=== PATIENT | female | born 1975 | race Asian ===

== ENCOUNTER 2016-05-27 11:03 | Emergency (ER) | payer OTHER ==
[~2016-05-27] VITALS: Ht 170.2 cm; Wt 59.0 kg
[2016-05-27 12:01] LABS: BILIRUBIN,URINE NEG (NEG); CLARITY,URINE CLEAR; COLOR,URINE YELLOW; GLUCOSE,URINE NEG (NEG)
[2016-05-27 12:02] LABS: NITRITE,URINE NEG (NEG); UROBILINOGEN,URINE 0.2 mg/dL (0.2 mg/dL)
--- NOTE | 2016-05-27 12:04 | RAD ---
CT of the abdomen and pelvis without contrast, 05/27/2016: History: Right flank pain, kidney stones Noncontrast scans were obtained utilizing the renal stone protocol. This is a limited study for evaluation of the possibility of urinary tract calculi. There is a 4 mm calculus in the central aspect of the right kidney. No left intrarenal calculi are identified. The renal collecting systems and ureters are not dilated. The nondilated distal ureters cannot be clearly traced through the pelvis in this patient. Several small bilateral pelvic calcifications are probably phleboliths. The possibility that one of these pelvic radiopacities lies in the distal ureter cannot be entirely excluded, although not likely considering the lack of proximal obstructive changes. The unopacified liver is unremarkable. No gallbladder abnormality is seen. The pancreas cannot be clearly from unopacified bowel. The spleen is of normal size. The abdominal aorta is unremarkable. A 2 cm rounded cystic structure in the left adnexa is presumably an ovarian cyst. A small amount of free fluid is present in the deep pelvis. The bowel loops are not dilated. The cecum is low-lying in the pelvis. The appendix is not visualized. Several small colonic diverticula are noted. No free air is evident in the abdomen or pelvis. IMPRESSION: 1. Nonobstructing right intrarenal calculus. 2. Pelvic calcifications are probably phleboliths, although the distal ureters are not clearly defined in this patient and therefore a distal ureteral calculus cannot be entirely excluded. 3. Small amount of free fluid in the pelvis. 4. Small left ovarian cyst. PQRS Compliance Statement: One or more of the following individualized dose reduction techniques were utilized for this examination: 1. Automated exposure control 2. Adjustment of the mA and/or kV according to patient size 3. Use of iterative reconstruction technique
[2016-05-27] MEDS ORDERED: HYDR-971 PO (12:12)
[2016-05-27] MEDS ORDERED: KETO10TA PO (12:12)
[2016-05-27] MEDS ORDERED: ONDA4TAB10 PO (12:12)
[2016-05-27] MEDS ORDERED: KETOROLAC 60 MG/2 ML VIAL. IM ONE (12:30)
[2016-05-27 12:35] VITALS: BP 136/82
--- NOTE | 2016-05-27 13:03 | ED.ADGEN ---
Past History Past Medical History: Endometriosis, Kidney Stones Past Surgical History: No Surgical History Alcohol Use: None Drug Use: None Adult General HPI HPI Patient is a 41-year-old female presents emergency Department with right flank pain since last night. Patient states this is consistent with her previous kidney stones. Her last was approximately one year ago. She they will pass most of her previous kidney stones on her own did require stenting one time. She denies any fevers or chills. She has had some nausea associated with the pain. At the moment she rates the pain a 5 out of 10 and is declining any pain medications. Review of Systems Review of Systems Constitutional: Denies fever or chills [] Eyes: Denies change in visual acuity, redness, or eye pain [] HENT: Denies nasal congestion or sore throat [] Respiratory: Denies cough or shortness of breath [] Cardiovascular: No additional information not addressed in HPI [] GI: Denies abdominal pain, nausea, vomiting, bloody stools or diarrhea [] : Denies dysuria or hematuria [] Musculoskeletal: Denies back pain or joint pain [] Integument: Denies rash or skin lesions [] Neurologic: Denies headache, focal weakness or sensory changes [] Endocrine: Denies polyuria or polydipsia [] Current Medications Current Medications Current Medications Medications (Trade) Dose Ordered Sig/[facility] Start Time Stop Time Status Last Admin Dose Admin Ketorolac Tromethamine (Toradol) 60 mg 1X ONCE 05/27/16 12:30 05/27/16 12:31 DC 05/27/16 12:22 60 MG Allergies Allergies Allergies Coded Allergies Type Severity Reaction Last Updated Verified No Known Drug Allergies 05/27/16 No Physical Exam Physical Exam Constitutional: Well developed, well nourished, no acute distress, non-toxic appearance. [] HENT: Normocephalic, atraumatic, bilateral external ears normal, oropharynx moist, no oral exudates, nose normal. [] Eyes: PERRLA, EOMI, conjunctiva normal, no discharge. [] Neck: Normal range of motion, no tenderness, supple, no stridor. [] Cardiovascular:Heart rate regular rhythm, no murmur [] Lungs & Thorax: Bilateral breath sounds clear to auscultation [] Abdomen: Bowel sounds normal, soft, no tenderness, no masses, no pulsatile masses. [] Skin: Warm, dry, no erythema, no rash. [] Back: No tenderness, right CVA tenderness. [] Extremities: No tenderness, no cyanosis, no clubbing, ROM intact, no edema. [] Neurologic: Alert and oriented X 3, normal motor function, normal sensory function, no focal deficits noted. [] Psychologic: Affect normal, judgement normal, mood normal. [] Current Patient Data Vital Signs Vital Signs Date Time Temp Pulse Resp B/P Pulse Ox O2 Delivery O2 Flow Rate FiO2 05/27/16 12:35 66 18 136/82 99 Room Air 05/27/16 11:10 98.7 Lab Results Laboratory Tests Test 05/27/16 11:24 05/27/16 11:31 Urine Collection Type Unknown Urine Color Yellow Urine Clarity Clear Urine pH 6.5 Urine Specific [place] 1.025 Urine Protein Neg (NEG-TRACE) Urine Glucose (UA) Negmg/dL (NEG) Urine Ketones (Stick) Negmg/dL (NEG) Urine Blood Trace (NEG) Urine Nitrite Neg (NEG) Urine Bilirubin Neg (NEG) Urine Urobilinogen Dipstick 0.2mg/dL (0.2 mg/dL) Urine Leukocyte Esterase Neg (NEG) POC Urine HCG, Qualitative hcg negative (Negative) EKG EKG [] Radiology/Procedures Radiology/Procedures CT of the abdomen and pelvis without contrast, 05/27/2016: History: Right flank pain, kidney stones Noncontrast scans were obtained utilizing the renal stone protocol. This is a limited study for evaluation of the possibility of urinary tract calculi. There is a 4 mm calculus in the central aspect of the right kidney. No left intrarenal calculi are identified. The renal collecting systems and ureters are not dilated. The nondilated distal ureters cannot be clearly traced through the pelvis in this patient. Several small bilateral pelvic calcifications are probably phleboliths. The possibility that one of these pelvic radiopacities lies in the distal ureter cannot be entirely excluded, although not likely considering the lack of proximal obstructive changes. The unopacified liver is unremarkable. No gallbladder abnormality is seen. The pancreas cannot be clearly from unopacified bowel. The spleen is of normal size. The abdominal aorta is unremarkable. A 2 cm rounded cystic structure in the left adnexa is presumably an ovarian cyst. A small amount of free fluid is present in the deep pelvis. The bowel loops are not dilated. The cecum is low-lying in the pelvis. The appendix is not visualized. Several small colonic diverticula are noted. No free air is evident in the abdomen or pelvis. IMPRESSION: 1. Nonobstructing right intrarenal calculus. 2. Pelvic calcifications are probably phleboliths, although the distal ureters are not clearly defined in this patient and therefore a distal ureteral calculus cannot be entirely excluded. 3. Small amount of free fluid in the pelvis. 4. Small left ovarian cyst.[] Course & Med Decision Making Course & Med Decision Making Pertinent Labs and Imaging studies reviewed. (See chart for details) The findings of the CT scan were reviewed with the patient. She is given prescriptions for Floris Zofran, and Toradol. She did receive an IM dose here. She was given supportive care and follow-up instructions. [] Final Impression Final Impression Right flank pain [] Problems: Dragon Disclaimer Dragon Disclaimer This electronic medical record was generated, in whole or in part, using a voice recognition dictation system. DEBORAH FAIRCHILD MD May 27, 2016 13:03
== END 2016-05-27 12:42 | disposition home or self-care (01) ==
LOC: ER 11:03
DX: R10.9 Unspecified abdominal pain (principal); R11.0 Nausea; Z87.442 Personal history of urinary calculi
CPT/HCPCS: 74176; 81003; 84703; 96372; 99284; J1885; 81025

== ENCOUNTER 2016-11-08 20:52 | Emergency (ER) | payer OTHER ==
[~2016-11-08] VITALS: Ht 170.2 cm; Wt 59.0 kg
[~2016-11-08 20:52] MED LIST: HYDR-971 PO; KETO10TA PO; ONDA4TAB10 PO
[2016-11-08 21:38] LABS: BILIRUBIN,URINE NEG (NEG); CLARITY,URINE HAZY; COLOR,URINE YELLOW; GLUCOSE,URINE NEG (NEG); NITRITE,URINE NEG (NEG); UROBILINOGEN,URINE 0.2 mg/dL (0.2 mg/dL)
[2016-11-08 21:45] LABS: BACTERIA,URINE 0 /HPF (0-FEW); RBC,URINE 20-40 /HPF (0-2); SQUAMOUS EPITHELIAL CELL,UR MANY /LPF; WBC,URINE 0 /HPF (0-4)
[2016-11-08] MEDS ORDERED: ONDANSETRON PF 4 MG/2 ML VIAL. IV ONE (21:45)
[2016-11-08] MEDS ORDERED: KETOROLAC 30 MG/ML VIAL. IV ONE (21:45)
[2016-11-08 21:46] LABS: U PREG PATIENT NEGATIVE (NEG)
[2016-11-08] MEDS: fentaNYL PF 100 MCG/2 ML VIAL IV PRN ×2 (22:03→23:15)
--- NOTE | 2016-11-08 22:19 | RAD ---
CT ABDOMEN PELVIS WO CONTRAST dated 11/08/2016 9:49 PM Indication: Right flank pain, radiating to right lower quadrant. History of stones, pain Comparison: 05/27/2016. Technique: Contiguous axial imaging of the abdomen and pelvis performed without the administration of IV or oral contrast. One or more of the following individualized dose reduction techniques were utilized for this examination: 1. Automated exposure control 2. Adjustment of the mA and/or kV according to patient size 3. Use of iterative reconstruction technique Findings: Limited images of lung bases are clear. Heart size within normal limits. No pleural or pericardial effusion. Solid abdominal viscera not well evaluated in the absence of contrast material. Small low-density focus at the inferior right lobe liver is indeterminate but unchanged from prior study. Biliary tree normal in caliber. Gallbladder is collapsed and not well evaluated. Spleen is normal in size. Pancreas, adrenal glands and kidneys are unremarkable. No stone or hydronephrosis. Unopacified GI tract normal in caliber and contour. No focal bowel wall thickening. No inflammatory stranding in the mesentery. There are a few scattered diverticula within the colon. The appendix is partially visualized and normal in caliber. No inflammatory changes in the right lower quadrant. No ascites or lymphadenopathy. Images of the pelvis show nondistended urinary bladder. No calcific bladder stone. The uterus is retroflexed. No free fluid or lymphadenopathy. Bone windows show no acute findings. IMPRESSION: 1. No acute abnormality of abdomen or pelvis. No renal stone or hydronephrosis. 2. Diverticulosis with no evidence of acute diverticulitis. Electronically signed by: Umesh Mart MD (11/08/2016 10:16 PM) [id number]
--- NOTE | 2016-11-08 22:34 | PHYS DOC ---
General Chief Complaint: FLANK PAIN Stated Complaint: RT FLANK PAIN Time Seen by MD: 20:54 Source: patient Exam Limitations: no limitations Problems: History of Present Illness Initial Comments Patient is a 41-year-old female who comes to the ED complaining of right flank pain. Patient states that she developed right flank pain consistent with prior kidney stone discomforts yesterday. She complains of sharp/achy right flank pain 6 out of 10, she denies any urinary symptoms no fever chills sweats or myalgias. Over- the-counter meds are not helping. She has history of endometriosis and her menses has just ended. Vital signs are stable on ED arrival. Timing/Duration: 24 hours Severity: moderate Modifying Factors: improves with other Associated Symptoms: other Allergies: Uncoded Allergies: sulfa (Allergy, Unknown, 11/08/16) Past Medical History Medical History: other (kidney stones, endometriosis) Surgical History: other (multiple ureteral stents) Social History Smoker: cigarettes Alcohol: none Drugs: none Review of Systems Constitutional: denies chills, denies diaphoresis, denies fever, denies malaise Respiratory: denies cough, denies shortness of breath Cardiovascular: denies chest pain, denies palpitations Gastrointestinal: see HPI, denies diarrhea, nausea, denies vomiting Genitourinary: see HPI Musculoskeletal: see HPI Psychiatric/Neurological: denies headache, denies numbness, denies paresthesia Physical Exam General Appearance: WD/WN, no apparent distress Ear, Nose, Throat: hearing grossly normal, normal ENT inspection Neck: non-tender, supple Respiratory: normal breath sounds, no respiratory distress Cardiovascular: normal peripheral pulses, regular rate, rhythm Gastrointestinal: normal bowel sounds, non tender, soft, no organomegaly Back: no CVA tenderness, no vertebral tenderness Extremities: non-tender, normal inspection Neurologic/Psychiatric: alert, normal mood/affect, oriented x 3 Skin: normal color, warm/dry Orders, Labs, Meds PATIENT: PAMELA FREIRE ACCOUNT: [id number] : 1975 LOCATION: ER AGE: 41 SEX: F EXAM STATUS: REG ER ORD. PHYSICIAN: ARI CONTEH DO REASON: R flank pain h/o stones PROCEDURE: CT ABDOMEN PELVIS WO CONTRAST CT ABDOMEN PELVIS WO CONTRAST dated 11/08/2016 9:49 PM Indication: Right flank pain, radiating to right lower quadrant. History of stones, pain Comparison: 05/27/2016. Technique: Contiguous axial imaging of the abdomen and pelvis performed without the administration of IV or oral contrast. One or more of the following individualized dose reduction techniques were utilized for this examination: 1. Automated exposure control 2. Adjustment of the mA and/or kV according to patient size 3. Use of iterative reconstruction technique Findings: Limited images of lung bases are clear. Heart size within normal limits. No pleural or pericardial effusion. Solid abdominal viscera not well evaluated in the absence of contrast material. Small low-density focus at the inferior right lobe liver is indeterminate but unchanged from prior study. Biliary tree normal in caliber. Gallbladder is collapsed and not well evaluated. Spleen is normal in size. Pancreas, adrenal glands and kidneys are unremarkable. No stone or hydronephrosis. Unopacified GI tract normal in caliber and contour. No focal bowel wall thickening. No inflammatory stranding in the mesentery. There are a few scattered diverticula within the colon. The appendix is partially visualized and normal in caliber. No inflammatory changes in the right lower quadrant. No ascites or lymphadenopathy. Images of the pelvis show nondistended urinary bladder. No calcific bladder stone. The uterus is retroflexed. No free fluid or lymphadenopathy. Bone windows show no acute findings. IMPRESSION: 1. No acute abnormality of abdomen or pelvis. No renal stone or hydronephrosis. 2. Diverticulosis with no evidence of acute diverticulitis. Electronically signed by: Umesh Mart MD (11/08/2016 10:16 PM) [id number] DICTATED AND SIGNED BY: UMESH MART MD DATE: 11/08/16 220 CC: BRANDEE CENTENO MD; ARI CONTEH DO ~ Urinalysis was positive only for blood Patient's symptoms are controlled her vital signs are stable CT of the abdomen and pelvis reveals no acute abnormalities. I discussed the need for further evaluation patient has [facility] follow-up at [place] on Thursday. I discussed signs and symptoms to monitor and indications to return I discussed smoking cessation patient expressed agreement and understanding with the treatment plan. Departure Time of Disposition: 22:54 Disposition: 01 HOME, SELF-CARE Diagnosis: hematuria, right flank pain h/o stones Condition: STABLE Patient Instructions: Hematuria, Adult Additional Instructions: Activity as tolerated. Aggressive hydration with gatorade, water. OTC ibuprofen as needed. Rx: norco 7.5mg #20 Take meds with food. Follow up at [place] Thursday for recheck and further evaluation/specialty referrals. Return to ED with new or changing symptoms. ARI CONTEH DO Nov 08, 2016 22:34
[2016-11-08] MEDS ORDERED: HYDR-965 PO (22:54)
[2016-11-08 23:10] VITALS: BP 112/52
[2016-11-08] MEDS ORDERED: HYDROcodone/APAP 10/325 1 TAB TABLET PO ONE (23:15)
== END 2016-11-08 23:17 | disposition home or self-care (01) ==
LOC: ER 20:52
DX: R31.9 Hematuria, unspecified (principal); Z87.442 Personal history of urinary calculi; F17.210 Nicotine dependence, cigarettes, uncomplicated; Z88.2 Allergy status to sulfonamides
CPT/HCPCS: 74176; 81001; 81025; 96374; 96375; 96376; 99285; J1885; J2405; J3010

== ENCOUNTER 2018-07-28 13:47 | Emergency (ER) | payer OTHER ==
[~2018-07-28] VITALS: Ht 167.6 cm; Wt 54.4 kg
[~2018-07-28 13:47] MED LIST changes: +HYDR-3165 PO; +HYDR-3166 PO; -HYDR-971 PO
[2018-07-28] MEDS ORDERED: IV NORMAL SALINE 1,000ML 1,000 ML IV SCH (14:07)
--- NOTE | 2018-07-28 14:12 | PHYS DOC ---
Past History Past Medical History: Endometriosis, Kidney Infection, Kidney Stones, UTI Past Surgical History: No Surgical History Alcohol Use: None Drug Use: None Adult General Chief Complaint Chief Complaint: FLANK PAIN HPI HPI Patient is a 43-year-old female who presents with complaint of right-sided flank pain that started a couple of days ago. Patient states that she's got a history of kidney stones for quite some time. She states that currently pain is primarily in her back and she rates the pain at a 6 out of 10. She states that she also has some discomfort around the bladder and does admit to urinary frequency but no real pain with urination. She denies any fever. Currently she denies any nausea but has had some nausea. She states the pain at its worst has gotten up to a 10. She states that there are no exacerbating or alleviating factors. Review of Systems Review of Systems Constitutional: Denies fever or chills [] Respiratory: Denies cough or shortness of breath [] Cardiovascular: No additional information not addressed in HPI [] GI: Denies abdominal pain. Admits to nausea without vomiting or diarrhea [] : Denies dysuria or hematuria. Admits to urinary frequency. [] Musculoskeletal: Complains of right-sided back pain [] All other systems were reviewed and found to be within normal limits, except as documented in this note. Current Medications Current Medications Current Medications Medications (Trade) Dose Ordered Sig/[facility] Start Time Stop Time Status Last Admin Dose Admin Ketorolac Tromethamine (Toradol 30mg Vial) 30 mg 1X ONCE 07/28/18 14:15 07/28/18 14:16 UNV Ondansetron HCl (Zofran) 4 mg 1X ONCE 07/28/18 14:15 07/28/18 14:16 UNV Sodium Chloride 1,000 ml @ 1,000 mls/hr Q1H 07/28/18 14:07 07/28/18 15:06 UNV Allergies Allergies Allergies Uncoded Allergies Type Severity Reaction Last Updated Verified sulfa Allergy Unknown 11/08/16 Physical Exam Physical Exam Constitutional: Well developed, well nourished, no acute distress, non-toxic appearance. [] HENT: Normocephalic, atraumatic, bilateral external ears normal, oropharynx moist, no oral exudates, nose normal. [] Eyes: PERRLA, EOMI, conjunctiva normal, no discharge. [] Neck: Normal range of motion, no tenderness, supple, no stridor. [] Cardiovascular:Heart rate regular rhythm, no murmur [] Lungs & Thorax: Bilateral breath sounds clear to auscultation [] Abdomen: Bowel sounds normal, soft, no tenderness. [] Skin: Warm, dry, no erythema, no rash. [] Extremities: No tenderness, no cyanosis, no clubbing, ROM intact, no edema. [] Neurologic: Alert and oriented X 3, no focal deficits noted. [] EKG EKG [] Radiology/Procedures Radiology/Procedures [] Impressions: CT abdomen pelvis without contrast dated 07/28/2018. Comparison made to 11/08/2016. CLINICAL INDICATION: Right flank pain for 4 days. History of stones. TECHNIQUE: Contiguous axial imaging of the abdomen and pelvis performed without the administration of IV or oral contrast. One or more of the following individualized dose reduction techniques were utilized for this examination: 1. Automated exposure control 2. Adjustment of the mA and/or kV according to patient size 3. Use of iterative reconstruction technique. FINDINGS: Limited images of lung bases are clear. Heart size within normal limits. No pleural or pericardial effusion. Solid abdominal viscera not well evaluated in the absence of contrast material. No apparent attenuation abnormality of the liver or spleen. Gallbladder is collapsed and not well evaluated. Pancreas, adrenal glands and kidneys are unremarkable. No stone or hydronephrosis. Unopacified GI tract normal in caliber and contour. No focal bowel wall thickening. No inflammatory stranding in the mesentery. The appendix is normal in caliber. No ascites or lymphadenopathy. Abdominal aorta normal in caliber. There are a few scattered diverticula within the distal colon. Images of pelvis show nondistended urinary bladder. No calcific bladder stone. Calcification in the bilateral pelvis most likely represents phleboliths. No free fluid or lymphadenopathy. Uterus and adnexa are unremarkable. Bone windows show no acute findings. IMPRESSION: 1. No acute abnormality of abdomen or pelvis. No renal stone or hydronephrosis. 2. Normal appendix. Electronically signed by: Umesh Mart MD (07/28/2018 3:31 PM) [id number] DICTATED AND SIGNED BY: UMEHS MART MD Course & Med Decision Making Course & Med Decision Making Pertinent Labs and Imaging studies reviewed. (See chart for details) [] Dragon Disclaimer Dragon Disclaimer This electronic medical record was generated, in whole or in part, using a voice recognition dictation system. Departure Departure: Impression: Primary Impression: Back pain Disposition: 01 HOME, SELF-CARE Condition: STABLE Referrals: BRANDEE CENTENO MD (PCP) Patient Instructions: Back Pain, Adult Scripts Diclofenac Sodium (DICLOFENAC SODIUM) 50 Mg Tablet.dr 1 TAB PO BID PRN for PAIN, #20 TAB Prov: MARCO ANTONIO MOBLEY Jr. DO 07/28/18 Orphenadrine Citrate (ORPHENADRINE CITRATE) 100 Mg Tablet.er 1 TAB PO BID PRN for MUSCLE SPASMS, #14 TAB Prov: MARCO ANTONIO MBOLEY Jr. DO 07/28/18 Acetaminophen With Codeine (TYLENOL WITH CODEINE #3 TABLET) 1 Each Tablet 1 TAB PO Q4-6HRS PRN for PAIN, #12 TAB Prov: MARCO ANTONIO MOBLEY Jr. DO 07/28/18 Problem Qualifiers Primary Impression: Back pain Back pain location: back pain in unspecified location Chronicity: acute Back pain laterality: right Qualified Codes: M54.9 - Dorsalgia, unspecified MARCO ANTONIO MOBLEY Jr. DO July 28, 2018 14:12
[2018-07-28] MEDS ORDERED: KETOROLAC 30 MG/ML VIAL. IV ONE (14:15)
[2018-07-28] MEDS ORDERED: ONDANSETRON PF 4 MG/2 ML VIAL. IV ONE (14:15)
[2018-07-28 14:30] LABS: BASO % 0 % (0-3); EOS # 0.3 x10^3/uL (0.0-0.7); EOS % 4 % (0-3); HEMATOCRIT 41.9 % (36.0-47.0); HEMOGLOBIN 14.2 g/dL (12.0-15.5); LYMPH # 3.1 x10^3/uL (1.0-4.8); LYMPH % 41 % (24-48); MEAN CORPUSCULAR HEMOGLOBIN 32 pg (25-35); MEAN CORPUSCULAR HGB CONC 34 g/dL (31-37); MEAN CORPUSCULAR VOLUME 94 fL (79-100); MONO # 0.5 x10^3/uL (0.0-1.1); MONO % 6 % (0-9); NEUT # 3.6 x10^3uL (1.8-7.7); NEUT % 48 % (31-73); PLATELET COUNT 256 x10^3/uL (140-400); RED BLOOD COUNT 4.44 x10^6/uL (3.50-5.40); RED CELL DISTRIBUTION WIDTH 12.9 % (11.5-14.5); WHITE BLOOD COUNT 7.4 x10^3/uL (4.0-11.0)
[2018-07-28 14:36] VITALS: BP 121/80
[2018-07-28 14:51] LABS: BACTERIA,URINE 0 /HPF (0-FEW); BILIRUBIN,URINE NEG (NEG); CLARITY,URINE HAZY; COLOR,URINE YELLOW; GLUCOSE,URINE NEG (NEG); NITRITE,URINE NEG (NEG); RBC,URINE 0 /HPF (0-2); UROBILINOGEN,URINE 0.2 mg/dL (0.2 mg/dL); WBC,URINE 0 /HPF (0-4)
[2018-07-28 14:54] LABS: U PREG PATIENT NEGATIVE (NEG)
[2018-07-28 15:16] LABS: ALBUMIN 3.1 g/dL (3.4-5.0); ALBUMIN/GLOBULIN RATIO 1.1 (1.0-1.7); CALCIUM 8.3 mg/dL (8.5-10.1); CREATININE 0.8 mg/dL (0.6-1.0); POTASSIUM 3.5 mmol/L (3.5-5.1); TOTAL BILIRUBIN 0.2 mg/dL (0.2-1.0)
--- NOTE | 2018-07-28 15:35 | RAD ---
CT abdomen pelvis without contrast dated 07/28/2018. Comparison made to 11/08/2016. CLINICAL INDICATION: Right flank pain for 4 days. History of stones. TECHNIQUE: Contiguous axial imaging of the abdomen and pelvis performed without the administration of IV or oral contrast. One or more of the following individualized dose reduction techniques were utilized for this examination: 1. Automated exposure control 2. Adjustment of the mA and/or kV according to patient size 3. Use of iterative reconstruction technique. FINDINGS: Limited images of lung bases are clear. Heart size within normal limits. No pleural or pericardial effusion. Solid abdominal viscera not well evaluated in the absence of contrast material. No apparent attenuation abnormality of the liver or spleen. Gallbladder is collapsed and not well evaluated. Pancreas, adrenal glands and kidneys are unremarkable. No stone or hydronephrosis. Unopacified GI tract normal in caliber and contour. No focal bowel wall thickening. No inflammatory stranding in the mesentery. The appendix is normal in caliber. No ascites or lymphadenopathy. Abdominal aorta normal in caliber. There are a few scattered diverticula within the distal colon. Images of pelvis show nondistended urinary bladder. No calcific bladder stone. Calcification in the bilateral pelvis most likely represents phleboliths. No free fluid or lymphadenopathy. Uterus and adnexa are unremarkable. Bone windows show no acute findings. IMPRESSION: 1. No acute abnormality of abdomen or pelvis. No renal stone or hydronephrosis. 2. Normal appendix. Electronically signed by: Umesh Mart MD (07/28/2018 3:31 PM) [id number]
[2018-07-28] MEDS ORDERED: ACET-704 PO (15:42)
[2018-07-28] MEDS ORDERED: ORPH-16 PO (15:42)
[2018-07-28] MEDS ORDERED: DICL50TA4 PO (15:42)
== END 2018-07-28 16:00 | disposition home or self-care (01) ==
LOC: ER 13:47
DX: M54.89 Other dorsalgia (principal); R10.9 Unspecified abdominal pain; R35.0 Frequency of micturition; Z87.442 Personal history of urinary calculi; Z87.440 Personal history of urinary (tract) infections; Z88.2 Allergy status to sulfonamides
CPT/HCPCS: 36415; 74176; 80053; 81001; 81025; 85025; 96374; 96375; 99285; J1885; J2405; J3010; J7030

== ENCOUNTER 2019-12-15 14:36 | Emergency (ER) | payer OTHER ==
[~2019-12-15] VITALS: Ht 167.6 cm; Wt 60.4 kg
[~2019-12-15 14:36] MED LIST changes: +ACET-704 PO; +DICL50TA4 PO; +ORPH-16 PO
--- NOTE | 2019-12-15 15:09 | PHYS DOC ---
Past History Past Medical History: Endometriosis, Kidney Stones Past Surgical History: Other Additional Past Surgical Histo: GI and right kidney Alcohol Use: Occasionally Drug Use: None General Adult EDM: Chief Complaint: FLANK PAIN HPI: HPI: Patient is a 44-year-old female who presented to ER today for evaluation of right-sided flank pain started 2 days ago. Patient also complained of urgency with urination, denies any blood in her urine. Patient is not sexually active for a year now. Patient has history of kidney stone. Patient feels like she is passing a kidney stone at this time. Patient denies any cough or fever, no trouble breathing. Review of Systems: Review of Systems: Constitutional: Denies fever or chills Eyes: Denies change in visual acuity HENT: Denies nasal congestion or sore throat Respiratory: Denies cough or shortness of breath Cardiovascular: Denies chest pain or edema GI: Positive for right-sided abdominal pain. : Denies dysuria Musculoskeletal: Denies back pain or joint pain Integument: Denies rash Neurologic: Denies headache, focal weakness or sensory changes Endocrine: Denies polyuria or polydipsia Lymphatic: Denies swollen glands Psychiatric: Denies depression or anxiety Heart Score: Risk Factors: Risk Factors: DM, Current or recent (<one month) smoker, HTN, HLP, family history of CAD, obesity. Risk Scores: Score 0 - 3: 2.5% MACE over next 6 weeks - Discharge Home Score 4 - 6: 20.3% MACE over next 6 weeks - Admit for Clinical Observation Score 7 - 10: 72.7% MACE over next 6 weeks - Early Invasive Strategies Allergies: Allergies: Allergies Coded Allergies Type Severity Reaction Last Updated Verified Sulfa (Sulfonamide Antibiotics) Allergy Intermediate 07/28/18 Yes Physical Exam: PE: Constitutional: Well developed, well nourished, no acute distress, non-toxic appearance. [] HENT: Normocephalic, atraumatic, bilateral external ears normal, oropharynx moist, no oral exudates, nose normal. [] Eyes: PERRLA, EOMI, conjunctiva normal, no discharge. [] Neck: Normal range of motion, no tenderness, supple, no stridor. [] Cardiovascular:Heart rate regular rhythm, no murmur [] Lungs & Thorax: Bilateral breath sounds clear to auscultation [] Abdomen: Bowel sounds normal, soft, no tenderness, no masses, no pulsatile masses. [] Skin: Warm, dry, no erythema, no rash. [] Back: No tenderness, positive for right CVA tenderness to palpation Extremities: No tenderness, no cyanosis, no clubbing, ROM intact, no edema. [] Neurologic: Alert and oriented X 3, normal motor function, normal sensory function, no focal deficits noted. [] Psychologic: Affect normal, judgement normal, mood normal. [] Current Patient Data: Vital Signs: Vital Signs Date Time Temp Pulse Resp B/P (MAP) Pulse Ox O2 Delivery O2 Flow Rate FiO2 12/15/19 14:47 98.0 80 14 126/99 (108) 99 Room Air EKG: EKG: [] Radiology/Procedures: Radiology/Procedures: [][address] [address] IMAGING REPORT Signed PATIENT: PAMELA KELLY CACCOUNT: [id number] : 1975 LOCATION: ER AGE: 44 SEX: F EXAM STATUS: REG ER ORD. PHYSICIAN: KAROL PATEL DO REASON: right flank pain PROCEDURE: CT ABDOMEN PELVIS WO CONTRAST Examination: CT ABDOMEN PELVIS WO CONTRAST History: right flank pain Comparison/Correlation: 07/28/2018 CT abdomen and pelvis without contrast Findings: Axial images of the abdomen and pelvis were obtained without contrast. Sagittal and coronal reformatted images were provided. Visualized lung bases are clear. There are, spleen, pancreas, and adrenal glands are unremarkable. There is no hydronephrosis or hydroureter. No radiopaque packing system calculus. Urinary bladder is unremarkable. Gallbladder is decompressed. No enlarged abdominal or pelvic lymph nodes. Retained contrast within a diverticulum at the cecum noted. The appendix is normal. Circumferential wall thickening of left abdominal small bowel ileus noted. Uterus is unremarkable. Concentric disc bulge at L4-5 and L5-S1 noted. Mild spinal canal stenosis at L4-5. Impression: No radiopaque collecting system calculus identified. No collecting system obstruction. Appendix is normal. PQRS Compliance Statement: One or more of the following individualized dose reduction techniques were utilized for this examination: 1. Automated exposure control 2. Adjustment of the mA and/or kV according to patient size 3. Use of iterative reconstruction technique Electronically signed by: Tam Morgan MD (12/15/2019 3:55 PM) [id number] DICTATED AND SIGNED BY: TAM MORGAN MD DATE: 12/15/19 1555 CC: ISRAEL ISAAC; KAROL PATEL DO ~ Course & Med Decision Making: Course & Med Decision Making Pertinent Labs and Imaging studies reviewed. (See chart for details) Patient is a 44-year-old female who presented with right flank pain, CT scan did not show any kidney stone. Patient will be admitted discharged home, she will need to follow-up with her family doctor or urologist for further evaluation. Dragon Disclaimer: Klash Disclaimer: This electronic medical record was generated, in whole or in part, using a voice recognition dictation system. Departure Departure: Impression: Primary Impression: Flank pain Disposition: HOME/RESIDENCE PRIOR TO ADM Condition: STABLE Referrals: ISRAEL ISAAC (PCP) MODESTO WRIGHT MD PLEASE CALL THIS UROLOGIST FOR OUTPATIENT FOLLOW UP Patient Instructions: Flank Pain Additional Instructions: Thank you for visiting our Emergency Department. We appreciate you trusting us with your care. If any additional problems come up don't hesitate to return to visit us. Please follow up with your primary care provider so they can plan additional care if needed and know about the problem that you had. If symptoms worsen come back to the Emergency Department. Any concerning symptoms that start such as chest pain, shortness of air, weakness or numbness on one side of the body, running high fevers or any other concerning symptoms return to the ER. Scripts Naproxen Sodium (ANAPROX DS) 550 Mg Tablet 1 TAB PO BID PRN for PAIN for 15 Days, #30 TAB 0 Refills Prov: KAROL PATEL DO 12/15/19 Hydrocodone Bit/Acetaminophen (NORCO 5-325 TABLET) 1 Each Tablet 1 TAB PO PRN Q6HRS PRN for PAIN, #15 TAB 0 Refills Prov: KAROL PATEL DO 12/15/19 KAROL PATEL DO Dec 15, 2019 15:09
[2019-12-15] MEDS ORDERED: ONDANSETRON PF 4 MG/2 ML VIAL. IVP ONE (15:15)
[2019-12-15] MEDS ORDERED: KETOROLAC 30 MG/ML VIAL. IVP ONE (15:15)
[2019-12-15] MEDS ORDERED: IV NORMAL SALINE 1,000ML 1,000 ML IV ONE (15:15)
[2019-12-15 15:29] LABS: BASO # 0.1 x10^3/uL (0.0-0.2); BASO % 1 % (0-3); EOS # 0.3 x10^3/uL (0.0-0.7); EOS % 3 % (0-3); HEMATOCRIT 42.5 % (36.0-47.0); HEMOGLOBIN 14.2 g/dL (12.0-15.5); LYMPH # 2.9 x10^3/uL (1.0-4.8); LYMPH % 30 % (24-48); MEAN CORPUSCULAR HEMOGLOBIN 33 pg (25-35); MEAN CORPUSCULAR HGB CONC 34 g/dL (31-37); MEAN CORPUSCULAR VOLUME 98 fL (79-100); MONO # 0.5 x10^3/uL (0.0-1.1); MONO % 5 % (0-9); NEUT % 61 % (31-73); PLATELET COUNT 231 x10^3/uL (140-400); RED BLOOD COUNT 4.32 x10^6/uL (3.50-5.40); RED CELL DISTRIBUTION WIDTH 12.8 % (11.5-14.5); WHITE BLOOD COUNT 9.7 x10^3/uL (4.0-11.0)
[2019-12-15 15:34] LABS: CALCIUM 9.5 mg/dL (8.5-10.1); GFR 60.8; POTASSIUM 3.9 mmol/L (3.5-5.1)
[2019-12-15 15:39] LABS: BILIRUBIN,URINE NEG (NEG); CLARITY,URINE CLEAR; COLOR,URINE YELLOW; GLUCOSE,URINE NEG (NEG)
[2019-12-15 15:40] LABS: NITRITE,URINE NEG (NEG); UROBILINOGEN,URINE 0.2 mg/dL (0.2 mg/dL)
[2019-12-15 15:40] LABS: ALBUMIN 3.9 g/dL (3.4-5.0); ALBUMIN/GLOBULIN RATIO 1.1 (1.0-1.7); TOTAL BILIRUBIN 0.2 mg/dL (0.2-1.0); TOTAL PROTEIN 7.5 g/dL (6.4-8.2)
[2019-12-15 15:41] LABS: AMORPHOUS SEDIMENT,UR PRESENT /HPF; BACTERIA,URINE FEW /HPF (0-FEW)
[2019-12-15] MEDS ORDERED: MORPHINE SULFATE 4 MG/ML DISP.SYRIN. IV ONE (15:45)
--- NOTE | 2019-12-15 15:59 | RAD ---
Examination: CT ABDOMEN PELVIS WO CONTRAST History: right flank pain Comparison/Correlation: 07/28/2018 CT abdomen and pelvis without contrast Findings: Axial images of the abdomen and pelvis were obtained without contrast. Sagittal and coronal reformatted images were provided. Visualized lung bases are clear. There are, spleen, pancreas, and adrenal glands are unremarkable. There is no hydronephrosis or hydroureter. No radiopaque packing system calculus. Urinary bladder is unremarkable. Gallbladder is decompressed. No enlarged abdominal or pelvic lymph nodes. Retained contrast within a diverticulum at the cecum noted. The appendix is normal. Circumferential wall thickening of left abdominal small bowel ileus noted. Uterus is unremarkable. Concentric disc bulge at L4-5 and L5-S1 noted. Mild spinal canal stenosis at L4-5. Impression: No radiopaque collecting system calculus identified. No collecting system obstruction. Appendix is normal. PQRS Compliance Statement: One or more of the following individualized dose reduction techniques were utilized for this examination: 1. Automated exposure control 2. Adjustment of the mA and/or kV according to patient size 3. Use of iterative reconstruction technique Electronically signed by: Tam Arora MD (12/15/2019 3:55 PM) [id number]
[2019-12-15 16:23] VITALS: BP 123/67
[2019-12-15] MEDS ORDERED: NAPR-682 PO (17:29)
[2019-12-15] MEDS ORDERED: HYDR-3165 PO (17:29)
== END 2019-12-15 17:35 | disposition home or self-care (01) ==
LOC: ER 14:36
DX: R10.9 Unspecified abdominal pain (principal); R39.15 Urgency of urination; Z87.442 Personal history of urinary calculi; Z88.2 Allergy status to sulfonamides
CPT/HCPCS: 36415; 74176; 80053; 81001; 83690; 85025; 96361; 96374; 96375; 99284; J1885; J2270; J2405; J7030

== ENCOUNTER 2020-07-18 16:31 | Emergency (ER) | payer OTHER ==
[~2020-07-18] VITALS: Ht 167.6 cm; Wt 60.4 kg
[~2020-07-18 16:31] MED LIST changes: +NAPR-682 PO
[2020-07-18 16:33] VITALS: BP 118/74
[2020-07-18] MEDS ORDERED: IV NORMAL SALINE 1,000ML 1,000 ML IV SCH (16:45)
[2020-07-18 17:09] LABS: BILIRUBIN,URINE NEG (NEG); CLARITY,URINE CLEAR; COLOR,URINE STRAW; GLUCOSE,URINE NEG (NEG); NITRITE,URINE NEG (NEG); UROBILINOGEN,URINE 0.2 mg/dL (0.2 mg/dL)
[2020-07-18 17:10] LABS: BACTERIA,URINE FEW /HPF (0-FEW); RBC,URINE 0 /HPF (0-2); WBC,URINE 0 /HPF (0-4)
[2020-07-18 17:11] LABS: BASO # 0.1 x10^3/uL (0.0-0.2); BASO % 1 % (0-3); EOS # 0.4 x10^3/uL (0.0-0.7); EOS % 4 % (0-3); HEMATOCRIT 40.3 % (36.0-47.0); HEMOGLOBIN 13.7 g/dL (12.0-15.5); LYMPH # 3.4 x10^3/uL (1.0-4.8); LYMPH % 34 % (24-48); MEAN CORPUSCULAR HEMOGLOBIN 33 pg (25-35); MEAN CORPUSCULAR HGB CONC 34 g/dL (31-37); MEAN CORPUSCULAR VOLUME 97 fL (79-100); MONO # 0.6 x10^3/uL (0.0-1.1); MONO % 6 % (0-9); NEUT # 5.5 x10^3uL (1.8-7.7); NEUT % 56 % (31-73); PLATELET COUNT 280 x10^3/uL (140-400); RED BLOOD COUNT 4.16 x10^6/uL (3.50-5.40); RED CELL DISTRIBUTION WIDTH 12.3 % (11.5-14.5); WHITE BLOOD COUNT 9.9 x10^3/uL (4.0-11.0)
[2020-07-18 17:26] LABS: CALCIUM 9.3 mg/dL (8.5-10.1); CREATININE 0.9 mg/dL (0.6-1.0); GFR 68.3; POTASSIUM 3.8 mmol/L (3.5-5.1)
[2020-07-18 17:37] LABS: ALBUMIN 4.2 g/dL (3.4-5.0); ALBUMIN/GLOBULIN RATIO 1.2 (1.0-1.7); TOTAL BILIRUBIN 0.2 mg/dL (0.2-1.0); TOTAL PROTEIN 7.6 g/dL (6.4-8.2)
[2020-07-18] MEDS ORDERED: METOCLOPRAMIDE HCL 10 MG/2 ML VIAL. IVP ONE (18:00)
[2020-07-18] MEDS ORDERED: KETOROLAC 15 MG/ML VIAL. IVP ONE (18:00)
--- NOTE | 2020-07-18 18:03 | PHYS DOC ---
Past History Past Medical History: Endometriosis, Kidney Stones, UTI (ANNE LEAL DO) Past Surgical History: Other Additional Past Surgical Histo: GI and right kidney (ANNE LEAL DO) Smoking: Cigarettes Alcohol Use: Occasionally Drug Use: None (ANNE LEAL DO) General Adult EDM: Chief Complaint: FLANK PAIN HPI: HPI: 45-year-old female presents with several day history of right flank pain. Reports an episode of hematuria. Reports some urinary urgency and frequency. Denies fever or chills. Patient does report history of frequent kidney stones. Reports she thinks she has passed a kidney stone during this period of time however today symptoms became more severe. Denies trauma. Denies . Patient reports history of endometriosis and therefore "medically "placed in menopause. Patient also reports she is not sexually active. (ANNE LEAL DO) Review of Systems: Review of Systems: Constitutional: Denies fever or chills Eyes: Denies redness or eye pain HENT: Denies nasal congestion or sore throat Respiratory: Denies cough or shortness of breath Cardiovascular: Denies chest pain or palpitations GI: Reports right-sided abdominal pain and nausea; denies vomiting : Reports dysuria and hematuria Musculoskeletal: Reports right flank pain; denies joint pain Integument: Denies rash or skin lesions Neurologic: Denies headache, focal weakness or sensory changes Complete systems were reviewed and found to be within normal limits, except as documented in this note. (ANNE LEAL DO) Current Medications: Current Meds: Current Medications Medications (Trade) Dose Ordered Sig/Elliot Start Time Stop Time Status Last Admin Dose Admin Fentanyl Citrate (Fentanyl 2ml Vial) 50 mcg 1X ONCE 07/18/20 18:00 07/18/20 18:01 UNV Ketorolac Tromethamine (Toradol 15mg Vial) 15 mg 1X ONCE 07/18/20 18:00 07/18/20 18:01 Metoclopramide HCl (Reglan Vial) 10 mg 1X ONCE 07/18/20 18:00 07/18/20 18:01 Sodium Chloride 1,000 ml @ 1,000 mls/hr Q1H 07/18/20 16:45 07/18/20 17:44 DC (ANNE LEAL DO) Allergies: Allergies: Allergies Coded Allergies Type Severity Reaction Last Updated Verified Sulfa (Sulfonamide Antibiotics) Allergy Intermediate 07/28/18 Yes (ANNE LEAL DO) Physical Exam: PE: Constitutional: Well developed, well nourished, uncomfortable appearance HENT: Normocephalic, atraumatic Eyes: Conjunctiva normal, no discharge Neck: Normal range of motion, supple Lungs & Thorax: No respiratory distress, equal chest rise and fall Abdomen: Soft, RUQ tenderness, no guarding/rebound tenderness/distention Skin: Warm, dry, no erythema, no rash Back: No tenderness, right CVA tenderness Extremities: No tenderness, ROM intact, no edema Neurologic: Alert and oriented X 3, no focal deficits noted Psychologic: Affect normal, judgment normal (ANNE LEAL DO) Current Patient Data: Labs: Laboratory Tests Test 07/18/20 16:38 White Blood Count 9.9 x10^3/uL (4.0-11.0) Red Blood Count 4.16 x10^6/uL (3.50-5.40) Hemoglobin 13.7 g/dL (12.0-15.5) Hematocrit 40.3 % (36.0-47.0) Mean Corpuscular Volume 97 fL (79-100) Mean Corpuscular Hemoglobin 33 pg (25-35) Mean Corpuscular Hemoglobin Concent 34 g/dL (31-37) Red Cell Distribution Width 12.3 % (11.5-14.5) Platelet Count 280 x10^3/uL (140-400) Neutrophils (%) (Auto) 56 % (31-73) Lymphocytes (%) (Auto) 34 % (24-48) Monocytes (%) (Auto) 6 % (0-9) Eosinophils (%) (Auto) 4 % (0-3) H Basophils (%) (Auto) 1 % (0-3) Neutrophils # (Auto) 5.5 x10^3uL (1.8-7.7) Lymphocytes # (Auto) 3.4 x10^3/uL (1.0-4.8) Monocytes # (Auto) 0.6 x10^3/uL (0.0-1.1) Eosinophils # (Auto) 0.4 x10^3/uL (0.0-0.7) Basophils # (Auto) 0.1 x10^3/uL (0.0-0.2) Urine Collection Type Unknown Urine Color Straw Urine Clarity Clear Urine pH 6.0 Urine Specific [place] 1.020 Urine Protein Neg (NEG-TRACE) Urine Glucose (UA) Neg mg/dL (NEG) Urine Ketones (Stick) Neg mg/dL (NEG) Urine Blood Trace (NEG) Urine Nitrite Neg (NEG) Urine Bilirubin Neg (NEG) Urine Urobilinogen Dipstick 0.2 mg/dL (0.2 mg/dL) Urine Leukocyte Esterase Neg (NEG) Urine RBC 0 /HPF (0-2) Urine WBC 0 /HPF (0-4) Urine Bacteria Few /HPF (0-FEW) Sodium Level 142 mmol/L (136-145) Potassium Level 3.8 mmol/L (3.5-5.1) Chloride Level 104 mmol/L (98-107) Carbon Dioxide Level 29 mmol/L (21-32) Anion Gap 9 (6-14) Blood Urea Nitrogen 26 mg/dL (7-20) H Creatinine 0.9 mg/dL (0.6-1.0) Estimated GFR (Cockcroft-Gault) 68.3 BUN/Creatinine Ratio 29 (6-20) H Glucose Level 98 mg/dL (70-99) Calcium Level 9.3 mg/dL (8.5-10.1) Magnesium Level 2.0 mg/dL (1.8-2.4) Total Bilirubin 0.2 mg/dL (0.2-1.0) Aspartate Amino Transferase (AST) 20 U/L (15-37) Alanine Aminotransferase (ALT) 26 U/L (14-59) Alkaline Phosphatase 92 U/L (46-116) Total Protein 7.6 g/dL (6.4-8.2) Albumin 4.2 g/dL (3.4-5.0) Albumin/Globulin Ratio 1.2 (1.0-1.7) Lipase 218 U/L (73-393) Vital Signs: Vital Signs Date Time Temp Pulse Resp B/P (MAP) Pulse Ox O2 Delivery O2 Flow Rate FiO2 07/18/20 16:33 98.9 75 118/74 (89) 100 07/18/20 16:31 16 Room Air (ANNE LEAL DO) EKG: EKG: [] (ANNE LEAL DO) Radiology/Procedures: Radiology/Procedures: [] (ANNE LEAL DO) Heart Score: C/O Chest Pain: N/A (ANNE LEAL DO) Course & Med Decision Making: Course & Med Decision Making Pertinent Labs and Imaging studies reviewed. (See chart for details) Patient presents with several day history of right flank pain. Pain/nausea addressed. IV fluid hydration given. Labs obtained and posted to chart. BUN/creatinine stable. UA without signs of infection or gross hematuria. CT abdomen/pelvis obtained and pending at time of signout. 1800-signout given to Dr. Mahoney for further evaluation and final disposition. Discussed current findings and plan with patient, who acknowledges understanding and agreement. (ANNE LEAL DO) Course & Med Decision Making Patient care handed off to me at checkout pending CT. Patient is a 45-year-old woman who presents with right-sided abdominal pain. Laboratory analysis not concerning. Urinalysis not concerning. CT with uncomplicated diverticulitis. Started patient on Augmentin and pain regimen in the ED. Discussed all findings with family and recommended course of antibiotics, antiemetics and pain me dicine. Also advised to call primary care physician first thing in the morning to update on ED visit, diagnosis and set up a follow-up visit as soon as she can. Gave strict return precautions to the ED. Family grateful, verbalized understanding and agreed with plan of discharge. (LEONARDO MAHONEY MD) Dragon Disclaimer: Dragon Disclaimer: This electronic medical record was generated, in whole or in part, using a voice recognition dictation system. (ANNE LEAL DO) Departure Departure: Impression: Primary Impression: Flank pain Additional Impression: Diverticulitis large intestine w/o perforation or abscess w/bleeding Disposition: 01 HOME / SELF CARE / HOMELESS Condition: IMPROVED Referrals: ISRAEL ISAAC (PCP) Patient Instructions: Diverticulitis Additional Instructions: Please read all of the attached information carefully. As discussed over the next several days switch her diet to light and clear with lots of fluid. Please take your antibiotics, pain medicine and nausea medicine as needed and prescribed. Please call your primary care physician first thing in the morning to update on your ED visit, diagnosis and set up a follow-up as soon as you can. Please come back to the emergency department immediately with new or concerning symptoms as discussed. Scripts Ondansetron Hcl (ZOFRAN) 4 Mg Tablet 1 TAB PO TID PRN for NAUSEA for 5 Days, #15 TAB Prov: LEONARDO MAHONEY MD 07/18/20 Hydrocodone/Acetaminophen (Hydrocodone-Acetamin 5-325 mg) 1 Each Tablet 1 EACH PO TID for abdominal pain for 5 Days, #15 TAB Prov: LEONARDO MAHONEY MD 07/18/20 Amoxicillin/Potassium Clav (AUGMENTIN 875-125 TABLET) 1 Each Tablet 1 TAB PO BID for diverticulitis for 10 Days, #19 TAB 0 Refills Prov: LEONARDO MAHONEY MD 07/18/20 ANNE LEAL DO July 18, 2020 18:03 LEONARDO MAHONEY MD July 18, 2020 19:02
--- NOTE | 2020-07-18 18:25 | RAD ---
Exam: CT of abdomen and pelvis without contrast INDICATION: Right flank pain TECHNIQUE: Sequential axial images through the abdomen and pelvis obtained without IV contrast. Sagit arley and coronal reformatted images were reconstructed from the axial data and reviewed. Exposure: One or more of the following in the visualized dose reduction techniques were utilized for this examination: 1. Automated exposure control 2. Adjustment of the MA and/or KV according to patient size 3. Use of iterative of reconstructive technique Comparisons: 12/15/2019 FINDINGS: Heart size is normal. No pericardial effusion. Visualized lung bases are clear. No pleural effusion. Evaluation of the solid organs is limited secondary to noncontrast technique. Liver, spleen, pancreas, gallbladder and adrenals are unremarkable. No perinephric inflammation or hydronephrosis. No renal or ureteral calculi are identified. Bladder is partially distended and not well evaluated. Uterus not enlarged. No abnormal adnexal mass. There is a diverticula at the ascending colon with mild adjacent fat stranding. Appendix is is not id entified. Remainder of the large and small bowel are unremarkable. No obstruction. Abdominal aorta has a normal course and caliber. No enlarged intra-abdominal lymph nodes are identified. No suspicious osseous lesions or acute fractures. IMPRESSION: 1. Findings of diverticulitis at the ascending colon. No adjacent perforation or abscess. 2. No renal or ureteral calculi. No evidence for obstructive uropathy. Electronically signed by: Marni Snyder MD (07/18/2020 6:22 PM) [facility]
[2020-07-18] MEDS ORDERED: AMOXICILLIN/K CLAV 875/125MG TABLET. PO ONE (19:00)
[2020-07-18] MEDS ORDERED: oxyCODONE/APAP 5/325 1 TAB TABLET PO ONE (19:00)
[2020-07-18] MEDS ORDERED: ONDA4TAB7 PO (19:01)
[2020-07-18] MEDS ORDERED: HYDR-2759 PO (19:01)
[2020-07-18] MEDS ORDERED: AMOX1TAB61 PO (19:01)
== END 2020-07-18 19:30 | disposition home or self-care (01) ==
LOC: ER 16:31
DX: K57.32 Diverticulitis of large intestine without perforation or abscess without bleeding (principal); F17.210 Nicotine dependence, cigarettes, uncomplicated; Z87.442 Personal history of urinary calculi; Z87.440 Personal history of urinary (tract) infections; Z88.2 Allergy status to sulfonamides
CPT/HCPCS: 36415; 74176; 80053; 81001; 83690; 83735; 85025; 96361; 96374; 96375; 99284; J1885; J2765; J3010; J7030

== ENCOUNTER 2021-03-11 10:37 | Emergency (ER) | payer OTHER ==
[~2021-03-11] VITALS: Ht 167.6 cm; Wt 62.0 kg
[~2021-03-11 10:37] MED LIST changes: +AMOX1TAB61 PO; +HYDR-2759 PO; +ONDA4TAB7 PO
--- NOTE | 2021-03-11 11:15 | RAD ---
Single AP view of the chest. Comparison: None. Indication: Cough, personal under investigation for Covid Findings: The heart is not enlarged. There is no pneumothorax or effusion. No air space or interstitial diseas e. Impression: 1. No acute cardiopulmonary process. Electronically signed by: Juan Garcia MD (03/11/2021 11:12 AM) [id number]
--- NOTE | 2021-03-11 11:32 | PHYS DOC ---
Past History Past Medical History: Endometriosis, Kidney Stones, UTI Additional Past Medical Histor: KIDNEY STONE, HERNIATED DISC Past Surgical History: Other Additional Past Surgical Histo: GI and right kidney Smoking: Cigarettes Alcohol Use: None Drug Use: None Adult General Chief Complaint Chief Complaint: COUGH HPI HPI Patient is a 45-year-old female presents to the emergency department complaining of sinus congestion with stuffy nose, sore throat, nonproductive cough, bilateral ear discomfort for the past 10 days. Patient also complains of sciatica flareup of the left, consistent with previous sciatica flareups. Patient reports she takes Relafen for chronic back pains however is not helping with her 8-9 out of 10 pain today. Denies increased urinary frequency, urinary pressure, burning with urination, denies seeing blood in her urine, denies history of IV drug use, immunosuppression, cancers. Patient denies numbness or tingling to her buttocks or genitals. Patient denies recent fever or chills, reports receiving the COVID-19 virus vaccine series, denies chest pains, shortness of breath, chest congestion, nausea, abdominal pain, vomiting or diarrhea. Denies incontinence of bowel/bladder, denies urinary retention, patient denies other physical complaints or physical concerns. Review of Systems Review of Systems 14 body systems of review of systems have been reviewed. See HPI for pertinent positives and negative responses, otherwise all other systems are negative, no npertinent or noncontributory. Constitutional: Negative except as outlined in HPI above. Skin: Negative except as outlined in HPI above. Eyes: Negative except as outlined in HPI above. HENT: Negative except as outlined in HPI above. Respiratory: Negative except as outlined in HPI above. Cardiovascular: Negative except as outlined in HPI above. GI: Negative except as outlined in HPI above. : Negative except as outlined in HPI above. Musculoskeletal: Negative except as outlined in HPI above. Integument: Negative except as outlined in HPI above. Neurologic: Negative except as outlined in HPI above. Endocrine: Negative except as outlined in HPI above. Lymphatic: Negative except as outlined in HPI above. Psychiatric: Negative except as outlined in HPI above. Allergies Allergies Allergies Coded Allergies Type Severity Reaction Last Updated Verified Sulfa (Sulfonamide Antibiotics) Allergy Intermediate 03/11/21 Yes Physical Exam Physical Exam Constitutional: Well developed, well nourished, no acute distress, non-toxic appearance. 45-year-old female in no apparent distress. HENT: Normocephalic, atraumatic. Oropharynx moist, slightly erythematous bilateral tonsils without cobblestoning or exudative drainage, no uvular edema or deviation, no laryngeal edema, patient speaking in normal voice tones, no drooling, no trismus, pain to palpation over maxillary sinuses, bilateral TMs with air bubbles, intact, not bulging, external auditory canals within normal limits without drainage, bilateral submental lymphadenopathy, no other lymphadenopathy of head or neck appreciated. Bilateral nasal turbinates boggy, clear drainage from nares, no postnasal drip appreciated. Eyes: Conjunctiva normal, no discharge. Neck: Normal range of motion, no stridor. No nuchal rigidity, no meningismus signs. Cardiovascular: No cyanosis appreciated, distal cap refill less than 2 seconds. Lungs & Thorax: Patient is in no respiratory distress, no audible adventitious lung sounds appreciated. Abdomen: Nontender, no abnormalities noted. Skin: Warm, dry, no erythema, no rash. Back: No deformities appreciated, no left-sided or right-sided CVA TTP, pain to palpation of left lumbar musculoskeletal structures. Distal cap refill less than 2 seconds bilateral lower extremities, 2+ radial pulses bilaterally. Extremities: No tenderness, no cyanosis, no clubbing, ROM intact, no edema. Neurologic: Alert and oriented X 3, normal motor function, normal sensory function, no focal deficits noted. Psychologic: Affect normal, judgement normal, mood normal. Current Patient Data Vital Signs Vital Signs Date Time Temp Pulse Resp B/P (MAP) Pulse Ox O2 Delivery O2 Flow Rate FiO2 03/11/21 10:48 98.9 85 18 132/80 (97) 100 Lab Results Laboratory Tests Test 03/11/21 10:45 03/11/21 11:10 03/11/21 11:15 Urine Collection Type Unknown Urine Color Straw Urine Clarity Clear Urine pH 6.5 Urine Specific [place] <=1.005 Urine Protein Neg Urine Glucose (UA) Neg mg/dL Urine Ketones (Stick) Neg mg/dL Urine Blood Neg Urine Nitrite Neg Urine Bilirubin Neg Urine Urobilinogen Dipstick 0.2 mg/dL Urine Leukocyte Esterase Neg Urine RBC 1-2 /HPF Urine WBC 0 /HPF Urine Squamous Epithelial Cells Few /LPF Urine Bacteria 0 /HPF Influenza Type A (Rapid) Negative Influenza Type B (Rapid) Negative Bedside Urine HCG, Qualitative hcg negative Current Medications Medications (Trade) Dose Ordered Sig/Elliot Route PRN Reason Start Time Stop Time Status Last Admin Dose Admin Methylprednisolone Acetate (DEPO-Medrol IM) 40 mg 1X ONCE IM 03/11/21 11:45 03/11/21 11:46 DC 03/11/21 12:09 Amoxicillin/ Clavulanate Potassium (Augmentin 875/ 125mg) 1 tab 1X ONCE PO 03/11/21 11:45 03/11/21 11:46 DC 03/11/21 12:07 Acetaminophen/ Hydrocodone Bitart (Lortab 5/325) 2 tab 1X ONCE PO 03/11/21 11:45 03/11/21 11:46 DC 03/11/21 12:08 Benzonatate (Tessalon Perle) 100 mg 1X ONCE PO 03/11/21 11:45 03/11/21 11:46 DC 03/11/21 12:07 Laboratory Tests Test 03/11/21 11:15 POC Urine HCG, Qualitative hcg negative (Negative) EKG EKG [] Radiology/Procedures Radiology/Procedures SEX: F EXAM STATUS: REG ER ORD. PHYSICIAN: NANE NIX APRN REASON: Cough, PUI PROCEDURE: CHEST AP ONLY Single AP view of the chest. Comparison: None. Indication: Cough, personal under investigation for Covid Findings: The heart is not enlarged. There is no pneumothorax or effusion. No air space or interstitial disease. Impression: 1. No acute cardiopulmonary process. Electronically signed by: Juan Garcia MD (03/11/2021 11:12 AM) [id number] Heart Score C/O Chest Pain: No Risk Factors: Risk Factors: DM, Current or recent (<one month) smoker, HTN, HLP, family history of CAD, obesity. Risk Scores: Risk Factors: DM, Current or recent (<one month) smoker, HTN, HLP, family history of CAD, obesity. Course & Med Decision Making Course & Med Decision Making Pertinent Labs and Imaging studies reviewed. (See chart for details) 45-year-old female, vital signs reviewed, presents to the emergency department with complaints of URI type signs and symptoms also sciatica flareup. Patient's physical examination consistent with sciatica flareup of the left, no saddle anesthesia, also consistent with sinusitis, this is unlikely a strep throat, low likelihood per Centor score, will prophylactically treat for sinusitis related to 10-day exacerbation with worsening symptoms. Will give first dose of Augmentin, Tessalon Perle for cough, chest x-ray, Covid testing for PCR, rapid flu A/B, steroid injection for sciatica flareup, p.o. pain medication, patient currently takes daily NSAID Relafen., Urinalysis assay, urine test. The patient's urine is not infected, she is not per urine test, rapid flu A/B-, PCR Covid19 testing pending at this time. Discussed with patient findings, will send prescription to pharmacy of choice, strict follow- up with primary care when she returns home to [place] from vacation this week, return to ER precautions and concerns, continue to take prescribed NSAIDs for chronic sciatica pains, patient gave verbal understanding of and is amenable to ED discharge planning. Dragon Disclaimer Dragon Disclaimer This electronic medical record was generated, in whole or in part, using a voice recognition dictation system. Departure Departure: Impression: Primary Impression: Back pain with sciatica Additional Impressions: Sinusitis Person under investigation for COVID-19 Disposition: HOME / SELF CARE / HOMELESS Condition: GOOD Referrals: ISRAEL ISAAC (PCP) Patient Instructions: Sciatica, Sinusitis Additional Instructions: You were seen today in the emergency department for nasal congestion, cough, sciatica flareup. A flu test drawn today was negative for flu A/B, a COVID-19 test per PCR is pending and should be available within the next 48 to 72 hours, I have attached COVID-19 virus information to this document, please review, you were treated today for your recurring sciatica back pains with a steroid injection and to 5/325 [place] for acute pain, please continue to take your NSAID as prescribed by your primary care physician for your recurring back pains, I am starting you on a antibiotic for your sinusitis, this will be Augmentin that you will take twice a day for the next 7 days. I have also prescribing you a cough medication to take up to 3 times a day as needed for cough. I have sent this to the pharmacy of your choice. Please take as directed until completed. When you return home to your residence in [place], please follow-up with your primary care physician for ongoing symptoms. Return to the emergency department for worsening symptoms or other concerns. Thank you for visiting our Emergency Department. It was a pleasure taking care of you today in the emergency department and we appreciate you trusting us with your care. If any additional problems come up don't hesitate to return to visit us. Please follow up with your primary care provider so they can plan additional care if needed and know about the problem that you had. If symptoms worsen come back to the Emergency Department. Any concerning symptoms that start such as chest pain, shortness of air, weakness or numbness on one side of the body, running high fevers or any other concerning symptoms return to the ER. You have been tested for or diagnosed with COVID-19. It is an infection caused by a new type of coronavirus. COVID-19 will cause cold-like or mild flu symptoms in most. It can cause more severe symptoms like problems breathing in some. There is no treatment for COVID-19. The body will clear the infection over time. Self-care will help to ease discomfort. Steps to Take: Self-Care Rest as needed. Healthy habits may help you feel better. Steps include: Choose healthy foods including fruits and vegetables. Drink water throughout the day. Get plenty of sleep each night. If you smoke, try to quit. It may ease breathing. Avoid alcohol. Keep Others Healthy The virus can spread to others. Droplets are released every time you sneeze or cough. The droplets can get into the mouth, nose, or eyes of people near you and lead to infection. To lower the chances of spreading COVID-19 to others: Stay at home until your doctor has said it is safe to leave. If you tested positive this will mean staying isolated until both of the following are true: At least 7 days have passed since the start of illness. You are free of fever for at least 72 hours without the use of medicine. During this time: - Avoid public areas, events, or transportation. Do not return to work or school until your doctor has said it is safe to do so. - Call ahead if you need to go to a medical center. Let them know you may have COVID-19. It will help them guide you where to go. They may also ask you to wear a facemask when you come to the office. - If you call for emergency medical services, let them know you may have COVID- 19. While at home: - Try to avoid close contact with others. Stay about 6 feet away. - If possible, spend most of your time in a separate room from others. - Use a face mask if you will be in close contact with others such as sharing a room or vehicle. - Have someone wipe down common surfaces in the home. Use household imcu specialist every day on areas like doorknobs, counters, or sinks. - Cough or sneeze into a tissue. Throw the tissue away right after use. If a tissue is not available, cough or sneeze into your elbow. - Wash your hands often. Wash them after sneezing or coughing. Use soap and water and wash for at least 20 seconds. Alcohol based hand shoe cleaner can be used if soap and water is not available. - Do not prepare food for others. Avoid sharing personal items like forks, spoons, or toothbrushes. - Avoid close contact with pets while you are sick. There is no evidence of the virus passing to pets. This is a safety step until more is known about this virus. Isolation can be frustrating. Social interaction can help. Keep in touch with friends and family through phone and tech options. You can still interact with others in you r home, just keep a safe distance of about 6 feet. Follow-up: Your doctors office will check in with you to see if there are any changes in your health. You may be asked to keep track of symptoms to share with them. They will also let you know when you are clear to be in public again. Problems to Look Out For: Contact your doctor if your recovery is not going as you expect. Get emergency care if you have problems such as: - Trouble breathing - Nonstop chest pain or pressure - Changes in awareness, confusion, or problems waking - Lips or face have bluish color - Worsening of symptoms If you think you have an emergency, call for emergency medical services right away. As taken from [facility] Benzonatate (BENZONATATE) 100 Mg Capsule 1 CAP PO TID for COUGH, #30 CAP 0 Refills Prov: ANNE NIX MACHINE LOADER 03/11/21 Amoxicillin/Potassium Clav (AUGMENTIN 875-125 TABLET) 1 Each Tablet 1 TAB PO BID for SINUSITIS for 7 Days, #14 TAB 0 Refills Prov: ANNE NIX MACHINE LOADER 03/11/21 Problem Qualifiers Additional Impressions: Sinusitis Sinusitis location: maxillary Chronicity: acute Recurrence: not specified as recurrent Qualified Codes: J01.00 - Acute maxillary sinusitis, unspecified ANNE NIX MACHINE LOADER Mar 11, 2021 11:32
[2021-03-11] MEDS ORDERED: AMOXICILLIN/K CLAV 875/125MG TABLET. PO ONE (11:45)
[2021-03-11] MEDS ORDERED: BENZONATATE 100 MG CAPSULE. PO ONE (11:45)
[2021-03-11] MEDS ORDERED: methylPREDNISolone ACETATE 40 MG/ML VIAL. IM ONE (11:45)
[2021-03-11] MEDS ORDERED: HYDROcodone/APAP 5/325MG 1 TAB TABLET PO ONE (11:45)
[2021-03-11 11:49] LABS: INFLUENZA A PATIENT NEGATIVE (NEGATIVE); INFLUENZA B PATIENT NEGATIVE (NEGATIVE)
[2021-03-11 12:06] LABS: BACTERIA,URINE 0 /HPF (0-FEW); BILIRUBIN,URINE NEG (NEG); CLARITY,URINE CLEAR; COLOR,URINE STRAW; GLUCOSE,URINE NEG (NEG); NITRITE,URINE NEG (NEG); SQUAMOUS EPITHELIAL CELL,UR FEW /LPF; UROBILINOGEN,URINE 0.2 mg/dL (0.2 mg/dL); WBC,URINE 0 /HPF (0-4)
[2021-03-11 12:43] VITALS: BP 134/90
[2021-03-11] MEDS ORDERED: BENZ-8 PO (12:43)
[2021-03-11] MEDS ORDERED: AMOX1TAB61 PO (12:43)
== END 2021-03-11 13:00 | disposition home or self-care (01) ==
LOC: ER 10:37
DX: M54.42 Lumbago with sciatica, left side (principal); J01.00 Acute maxillary sinusitis, unspecified; F17.210 Nicotine dependence, cigarettes, uncomplicated; Z20.822 Contact with and (suspected) exposure to COVID-19; Z87.440 Personal history of urinary (tract) infections; Z87.442 Personal history of urinary calculi; Z88.2 Allergy status to sulfonamides
CPT/HCPCS: 71045; 81001; 81025; 87804; 96372; 99284; C9803; J1030; U0003